=== PATIENT | female | born 1975 | race Caucasian/White ===

== ENCOUNTER 2022-02-07 18:29 | Outpatient (CLI) | payer MEDICAID ==
[2022-02-07 19:14] LABS: BASOPHILS # (AUTO) 0.1 X10'3 (0-0.2); BASOPHILS % (AUTO) 1.1 % (0-1); EOSINOPHILS # (AUTO) 0.3 X10'3 (0-0.9); EOSINOPHILS % (AUTO) 6.1 % (0-6); HEMATOCRIT 33.7 % (35.0-45.0); HEMOGLOBIN 11.2 g/dl (12.0-16.0); LYMPHOCYTES # (AUTO) 1.6 X10'3 (1.1-4.8); LYMPHOCYTES % (AUTO) 27.4 % (21-51); MEAN CORPUSCULAR HEMOGLOBIN 28.5 PG (27.0-31.0); MEAN CORPUSCULAR HGB CONC 33.2 g/dL (33.0-36.5); MEAN CORPUSCULAR VOLUME 85.7 FL (78-98); MEAN PLATELET VOLUME 7.1 FL (7.4-10.4); MONOCYTES # (AUTO) 0.8 X10'3 (0-0.9); MONOCYTES % (AUTO) 13.5 % (2-12); NEUTROPHILS % (AUTO) 51.9 % (42-75); PLATELET COUNT 273 X10'3 (140-440); RED BLOOD COUNT 3.93 X10'6 (4.20-5.60); RED CELL DISTRIBUTION WIDTH 14.1 % (11.5-14.5); WHITE BLOOD COUNT 5.7 X10'3 (4.5-11.0)
[2022-02-07 19:19] LABS: ALBUMIN 3.2 G/DL (3.4-5.0); BLOOD UREA NITROGEN 11 MG/DL (7-18); BUN/CREATININE RATIO 12.5 (6.6-38.0); C-REACTIVE PROTEIN 0.57 MG/DL (0.0-0.5); CALCIUM 8.5 MG/DL (8.5-10.1); CHLORIDE 107 MMOL/L (99-107); CREATININE 0.88 MG/DL (0.40-0.90); GLUCOSE 106 MG/DL (70-104); TOTAL CARBON DIOXIDE 21.9 MMOL/L (24-32); VANCOMYCIN,RANDOM 20.8 UG/ML; eGFR 70 ML/MIN
[2022-02-07 19:25] LABS: ANION GAP 12 (8-16); POTASSIUM 3.6 MMOL/L (3.5-5.1); SODIUM 141 MMOL/L (135-145)
== END 2022-02-07 23:59 | disposition home or self-care (01) ==
LOC: LAB SPEC 18:29
PROVIDERS: ATTEND Orthopaedic Surgery
DX: T81.40XA Infection following a procedure, unspecified, initial encounter (principal); Y83.9 Surgical procedure, unspecified as the cause of abnormal reaction of the patient, or of later complication, without mention of misadventure at the time of the procedure; Y92.89 Other specified places as the place of occurrence of the external cause
CPT/HCPCS: 36415; 80048; 80202; 85025; 86140

== ENCOUNTER 2022-08-25 11:17 | Emergency (ER) | payer MEDICAID ==
[~2022-08-25] VITALS: Ht 182.9 cm; Wt 81.8 kg
[~2022-08-25 11:17] MED LIST: LEVO750T68 PO
[2022-08-25 11:48] LABS: BASOPHILS # (AUTO) 0.1 X10'3 (0-0.2); BASOPHILS % (AUTO) 0.6 % (0-1); EOSINOPHILS # (AUTO) 0.3 X10'3 (0-0.9); EOSINOPHILS % (AUTO) 2.6 % (0-6); HEMATOCRIT 43.8 % (42.0-52.0); HEMOGLOBIN 14.8 g/dl (14.0-17.9); LYMPHOCYTES # (AUTO) 2.7 X10'3 (1.1-4.8); LYMPHOCYTES % (AUTO) 26.6 % (21-51); MEAN CORPUSCULAR HEMOGLOBIN 30.3 PG (27.0-31.0); MEAN CORPUSCULAR HGB CONC 33.7 g/dL (33.0-36.5); MEAN CORPUSCULAR VOLUME 89.9 FL (78-98); MEAN PLATELET VOLUME 6.4 FL (7.4-10.4); MONOCYTES # (AUTO) 0.7 X10'3 (0-0.9); MONOCYTES % (AUTO) 7.1 % (2-12); NEUTROPHILS # (AUTO) 6.5 X10'3 (1.8-7.7); NEUTROPHILS % (AUTO) 63.1 % (42-75); PLATELET COUNT 360 X10'3 (140-440); RED BLOOD COUNT 4.87 X10'6 (4.70-6.10); RED CELL DISTRIBUTION WIDTH 13.8 % (11.5-14.5); WHITE BLOOD COUNT 10.3 X10'3 (4.5-11.0)
[2022-08-25 12:05] LABS: ALANINE AMINOTRANSFERASE 27 U/L (12-78); ALBUMIN 3.6 G/DL (3.4-5.0); ALBUMIN/GLOBULIN RATIO 1.1 (1.1-1.5); ALKALINE PHOSPHATASE 90 IU/L (46-116); ANION GAP 7 (8-16); ASPARTATE AMINO TRANSFERASE 20 U/L (10-37); BILIRUBIN,TOTAL 0.4 MG/DL (0.1-1.0); BLOOD UREA NITROGEN 9 MG/DL (7-18); BUN/CREATININE RATIO 9.7 (5.4-32.0); CHLORIDE 100 MMOL/L (99-107); CREATININE 0.93 MG/DL (0.60-1.10); GLUCOSE 94 MG/DL (70-104); MAGNESIUM 2.3 MG/DL (1.5-2.4); SODIUM 131 MMOL/L (135-145); TOTAL CARBON DIOXIDE 24.5 MMOL/L (24-32); eGFR 88 ML/MIN
[2022-08-25] MEDS ORDERED: normal saline 1000ML IV soln IVB ONE (12:55)
[2022-08-25 14:25] LABS: CLARITY,URINE CLEAR (Clear); COLOR,URINE YELLOW (Yellow); GLUCOSE, URINE NEGATIVE (Neg); KETONES,URINE NEGATIVE (Neg); LEUKOCYTE ESTERASE ,URINE NEGATIVE (Neg); NITRITES, URINE NEGATIVE (Neg); OCCULT BLOOD,URINE NEGATIVE (Neg); PROTEIN,URINE NEGATIVE (Neg); UROBILINOGEN,URINE 0.2 E.U/dL (0.2-1.0)
[2022-08-25 14:50] LABS: UA COLLECTION TYPE CLN CATCH MIDSTREAM
[2022-08-25 14:55] LABS: URINE AMPHETAMINE SCREEN NEGATIVE (Neg); URINE BARBITUATE SCREEN NEGATIVE (Neg); URINE BENZODIAZEPINES SCREEN NEGATIVE (Neg); URINE CANNABINOID SCREEN NEGATIVE (Neg); URINE COCAINE SCREEN NEGATIVE (Neg); URINE METHADONE SCREEN NEGATIVE (Neg); URINE OPIATE SCREEN NEGATIVE (Neg); URINE PHENCYCLIDINE SCREEN NEGATIVE (Neg)
[2022-08-25 15:37] VITALS: BP 114/77
== END 2022-08-25 15:43 | disposition home or self-care (01) ==
LOC: ER 11:18
DX: R53.1 Weakness (principal); R42 Dizziness and giddiness; F15.90 Other stimulant use, unspecified, uncomplicated; Z79.2 Long term (current) use of antibiotics
CPT/HCPCS: 36415; 80053; 80305; 81003; 83735; 83880; 84484; 85025; 93005; 96360; 99284; J7030

== ENCOUNTER 2023-09-08 12:13 | Emergency (ER) | payer MEDICAID ==
[~2023-09-08] VITALS: Ht 182.9 cm; Wt 84.1 kg
[2023-09-08 12:58] VITALS: TEMP 99.7
[2023-09-08 13:54] VITALS: BP 95/65; PULSE 117; RESP 18; O2SAT 97
[2023-09-08 14:07] LABS: WHITE BLOOD COUNT 11.9 X10'3 (4.5-11.0)
[2023-09-08 14:11] LABS: HEMATOCRIT 43.5 % (42.0-52.0); HEMOGLOBIN 14.5 g/dl (14.0-17.9); MEAN CORPUSCULAR HEMOGLOBIN 30.1 PG (27.0-31.0); MEAN CORPUSCULAR HGB CONC 33.4 g/dL (33.0-36.5); MEAN CORPUSCULAR VOLUME 90.2 FL (78-98); MEAN PLATELET VOLUME 7.2 FL (7.4-10.4); PLATELET COUNT 159 X10'3 (140-440); RED BLOOD COUNT 4.82 X10'6 (4.70-6.10); RED CELL DISTRIBUTION WIDTH 13.7 % (11.5-14.5)
[2023-09-08 14:29] LABS: ALANINE AMINOTRANSFERASE 29 U/L (12-78); ALBUMIN 3.9 G/DL (3.4-5.0); ALBUMIN/GLOBULIN RATIO 1.2 (1.1-1.5); ALKALINE PHOSPHATASE 92 IU/L (46-116); ANION GAP 11 (8-16); ASPARTATE AMINO TRANSFERASE 20 U/L (10-37); BILIRUBIN,TOTAL 2.3 MG/DL (0.1-1.0); BLOOD UREA NITROGEN 18 MG/DL (7-18); BUN/CREATININE RATIO 18.9 (10.0-20.0); CALCIUM 9.1 MG/DL (8.5-10.1); CHLORIDE 101 MMOL/L (99-107); CREATININE 0.95 MG/DL (0.60-1.10); GLUCOSE 130 MG/DL (70-104); LIPASE 17 U/L (16-77); POTASSIUM 4.1 MMOL/L (3.5-5.1); SODIUM 135 MMOL/L (135-145); TOTAL CARBON DIOXIDE 22.6 MMOL/L (24-32); TOTAL PROTEIN 7.1 G/DL (6.4-8.2); eCRCL 107 ML/MIN; eGFR 85 ML/MIN
[2023-09-08 15:09] LABS: TOTAL CELLS COUNTED 100
[2023-09-08 15:10] LABS: PLATELET ESTIMATE NORMAL
== END 2023-09-08 17:43 | disposition left against medical advice (07) ==
LOC: ER 12:14
DX: R11.0 Nausea (principal); R30.9 Painful micturition, unspecified; J11.1 Influenza due to unidentified influenza virus with other respiratory manifestations; Z53.21 Procedure and treatment not carried out due to patient leaving prior to being seen by health care provider
CPT/HCPCS: 80053; 83690; 85007; 85025; 99281

== ENCOUNTER 2023-10-09 20:17 | Emergency (ER) | payer MEDICAID ==
[~2023-10-09] VITALS: Ht 182.9 cm; Wt 87.0 kg
[2023-10-09 22:34] LABS: BASOPHILS % (AUTO) 0.2 % (0-1); EOSINOPHILS # (AUTO) 0.1 X10'3 (0-0.9); EOSINOPHILS % (AUTO) 0.4 % (0-6); HEMATOCRIT 40.4 % (42.0-52.0); HEMOGLOBIN 13.3 g/dl (14.0-17.9); LYMPHOCYTES # (AUTO) 0.6 X10'3 (1.1-4.8); LYMPHOCYTES % (AUTO) 4.2 % (21-51); MEAN CORPUSCULAR HEMOGLOBIN 29.7 PG (27.0-31.0); MEAN CORPUSCULAR VOLUME 90.2 FL (78-98); MEAN PLATELET VOLUME 7.2 FL (7.4-10.4); MONOCYTES # (AUTO) 0.6 X10'3 (0-0.9); MONOCYTES % (AUTO) 3.9 % (2-12); NEUTROPHILS % (AUTO) 91.3 % (42-75); PLATELET COUNT 219 X10'3 (140-440); RED BLOOD COUNT 4.48 X10'6 (4.70-6.10); RED CELL DISTRIBUTION WIDTH 14.5 % (11.5-14.5); WHITE BLOOD COUNT 14.2 X10'3 (4.5-11.0)
[2023-10-09 22:40] LABS: ALANINE AMINOTRANSFERASE 36 U/L (12-78); ALBUMIN 3.5 G/DL (3.4-5.0); ALBUMIN/GLOBULIN RATIO 1.2 (1.1-1.5); ALKALINE PHOSPHATASE 86 IU/L (46-116); ANION GAP 10 (8-16); ASPARTATE AMINO TRANSFERASE 17 U/L (10-37); BILIRUBIN,TOTAL 0.8 MG/DL (0.1-1.0); BLOOD UREA NITROGEN 18 MG/DL (7-18); CALCIUM 8.6 MG/DL (8.5-10.1); CHLORIDE 102 MMOL/L (99-107); CREATININE 1.06 MG/DL (0.60-1.10); GLUCOSE 118 MG/DL (70-104); LIPASE 19 U/L (16-77); SODIUM 138 MMOL/L (135-145); TOTAL CARBON DIOXIDE 25.9 MMOL/L (24-32); TOTAL PROTEIN 6.5 G/DL (6.4-8.2); eCRCL 96 ML/MIN; eGFR 75 ML/MIN
[2023-10-10 00:03] LABS: BILIRUBIN,URINE NEGATIVE (Neg); CLARITY,URINE CLOUDY (Clear); COLOR,URINE YELLOW (Yellow); GLUCOSE, URINE NEGATIVE (Neg); KETONES,URINE NEGATIVE (Neg); LEUKOCYTE ESTERASE ,URINE MODERATE (Neg); NITRITES, URINE POSITIVE (Neg); OCCULT BLOOD,URINE NEGATIVE (Neg); PROTEIN,URINE NEGATIVE (Neg); UROBILINOGEN,URINE 0.2 E.U/dL (0.2-1.0)
[2023-10-10 00:56] LABS: UA COLLECTION TYPE NON-SPECIFIED
[2023-10-10 00:58] LABS: SQUAMOUS EPITHELIAL CELL,UR FEW /LPF (FEW)
[2023-10-10 00:59] LABS: RBC,URINE 0-2 /HPF (0-2); WBC,URINE 50-100 /HPF (0-4)
[2023-10-10 01:00] LABS: BACTERIA,URINE 4+ /HPF (Neg); MUCUS STRANDS FEW /LPF (Neg)
[2023-10-10] MEDS ORDERED: SULF1TAB49 PO (01:25)
[2023-10-10] MEDS: sulfamethoxazole/trimethoprim DS (800/160mg) tablet PO ONE (01:43)
[2023-10-10 01:50] VITALS: BP 132/79; PULSE 89; RESP 16; TEMP 98.9; O2SAT 100
== END 2023-10-10 01:53 | disposition home or self-care (01) ==
LOC: ER 20:17
DX: N10 Acute pyelonephritis (principal); F15.90 Other stimulant use, unspecified, uncomplicated; Z79.899 Other long term (current) drug therapy
CPT/HCPCS: 36415; 80053; 81001; 81003; 83690; 85025; 87077; 87088; 87186; 99283

== ENCOUNTER → 2024-01-29 | Outpatient (CLI) | payer MEDICAID | END | disposition home or self-care (01) | LOC: MRI 11:58 | PROVIDERS: ATTEND Specialist | DX: S43.491A Other sprain of right shoulder joint, initial encounter (principal); M19.011 Primary osteoarthritis, right shoulder; M25.511 Pain in right shoulder; M24.811 Other specific joint derangements of right shoulder, not elsewhere classified; G25.89 Other specified extrapyramidal and movement disorders; X58.XXXA Exposure to other specified factors, initial encounter; Y93.89 Activity, other specified; Y92.89 Other specified places as the place of occurrence of the external cause; Y99.8 Other external cause status; M75.51 Bursitis of right shoulder | CPT/HCPCS: 73221 ==

== ENCOUNTER 2025-02-06 09:28 | Emergency (ER) | payer MEDICAID ==
[~2025-02-06] VITALS: Ht 182.9 cm; Wt 119.0 kg
[2025-02-06 09:40] VITALS: TEMP 98.5
[2025-02-06 10:23] LABS: LEUKOCYTE ESTERASE ,URINE TRACE (Neg); NITRITES, URINE POSITIVE (Neg); OCCULT BLOOD,URINE NEGATIVE (Neg)
[2025-02-06 10:27] LABS: UA COLLECTION TYPE VOIDED
[2025-02-06 10:51] LABS: SQUAMOUS EPITHELIAL CELL,UR FEW /LPF (FEW); WBC CLUMPS,URINE FEW /HPF (NEGATIVE)
[2025-02-06 10:53] LABS: RENAL CELLS, URINE FEW /HPF
--- NOTE | 2025-02-06 11:08 | Physician Documentation ---
History of Present Illness General Chief Complaint: Testicular Pain Stated Complaint: TESTICULAR PAIN Time Seen by MD: 10:54 Primary Medical Doctor: ERIN LE History of Present Illness Initial Comments The patient is a 49-year-old male who was working on a truck two days ago. He was standing on a front tire and slipped. He landed such that his left testicle was crushed against the tire. He comes in complaining of swelling and pain of the left testis. He has had pyelonephritis in the past, on the right side. Medication Reconciliation Allergies: Coded Allergies: No Known Allergies (Unverified , 09/08/23) Scheduled Levofloxacin (Levofloxacin), 1 TAB PO DAILY Past Medical History Past Medical History: No Pertinent History Past Surgical History: noncontributory Alcohol Use: None Drug Use: methamphetamine Lives with: S/O Lives In: Home Review of Systems ROS Constitutional: Denies chills, fatigue, fever, weight gain or weight loss. HEENT: Denies hearing loss, sinus pressure or visual changes. Respiratory: Denies cough, shortness of breath or wheezing. Cardiovascular: Denies chest pain, pain while walking (claudication), edema or palpitations. Gastrointestinal: Denies abdominal pain, blood in stool, constipation, diarrhea, heartburn, loss of appetite, nausea or vomiting. Genitourinary: Left-sided testicular pain and swelling Metabolic/Endocrine: Denies cold intolerance, heat intolerance, excessive thirst (polydipsia) or excessive hunger (polyphagia). Neurological: Denies dizziness, extremity numbness, extremity weakness, headaches, seizures or tremors. Psychiatric: Denies anxiety or depression. Integumentary: Denies breast discharge, breast lump, hives, mole change(s), rash or skin lesion. Musculoskeletal: Denies back pain, joint pain, joint swelling or neck pain. Hematologic: Denies easily bleeding, easily bruises, lymphedema or issues with blood clots. Immunologic: Denies food allergies or seasonal allergies. Physical Exam Physical Exam Vital Signs: Temperature: 98.5, Source: Oral, Heart Rate: 119, Respiratory Rate: 18, BP: 119/70, Pulse Oximetry: 99, Weight: 119.000 Physical Exam Physical Exam Vitals and nursing note reviewed. Constitutional: General: Patient is awake, alert, oriented x 4 in no acute distress and well appearing. Speech is clear and lucid. Appearance: Normal appearance. Patient is not ill-appearing, toxic-appearing or diaphoretic. HENT: Head: Normocephalic and atraumatic. Mouth/Throat: Mouth: Mucous membranes are moist. Pharynx: Oropharynx is clear. Eyes: General: No scleral icterus. Extraocular Movements: Extraocular movements intact. Pupils: Pupils are equal, round, and reactive to light. Neck: Supple, no Kernig or Brudzinski sign. Cardiovascular: Rate and Rhythm: Normal rate and regular rhythm. Heart sounds: No murmur heard. Pulmonary: Effort: No respiratory distress. Breath sounds: No wheezing, rhonchi or rales. Abdominal: General: There is no distension. Palpations: There is no fluid wave, hepatomegaly or mass. Tenderness: There is no abdominal tenderness. There is no guarding. Genitourinary: Uncircumcised male, moderately severe left hemiscrotal swelling. Musculoskeletal: General: No swelling or deformity. Skin: Coloration: Skin is not jaundiced. Findings: No erythema or rash. Neurological: Mental Status: Patient is alert. Progress Results/Orders Results/Orders Orders - ELDA ESPINOZA MD Cult Urine + [address] (02/06/25 10:56) Us Testic/W/Duplex (02/06/25 ) Culture Blood (02/06/25 11:03) Completed Orders - ELDA ESPINOZA MD Ua W/Microscopic, Cult If Ind (02/06/25 10:15) Us Testic/W/Duplex (02/06/25 ) Bmp Er (02/06/25 11:03) Cbc/Diff (02/06/25 11:03) Lacticsepsis (02/06/25 11:03) Ceftriaxone 2gm/D5w 50ml Bag (Rocephin 2 (02/06/25 11:03) Medications Received in ER Medications (Trade) Dose Ordered Sig/Sly Route PRN Reason Start Time Stop Time Status Last Admin Dose Admin Ceftriaxone Sodium/Dextrose 50 ml @ 100 mls/hr ONCE STAT IV 02/06/25 11:03 02/06/25 11:32 DC 02/06/25 12:04 100 MLS/HR Vital Signs 02/06/25 02/06/25 02/06/25 09:40 11:15 12:37 Temp 98.5 Pulse 119 77 83 Resp 18 16 18 B/P (MAP) 119/70 124/69 (87) 114/70 (85) Pulse Ox 99 98 100 O2 Flow Rate 0 0 Laboratory Tests Test 02/06/25 10:15 02/06/25 11:44 Urine Specimen Description Voided Urine Color Yellow Urine Clarity Slightly cloudy Urine pH 6.0 Urine Specific [place] 1.025 Urine Protein Negative Urine Glucose (UA) Negative Urine Ketones Negative Urine Occult Blood Negative Urine Nitrite Positive H Urine Bilirubin Negative Urine Urobilinogen 0.2 Urine Leukocyte Esterase Trace H Urine RBC 0-2 Urine WBC 30-50 H Urine WBC Clumps Few Urine Squamous Epithelial Cells Few Urine Transitional Epithelial Cells Moderate Urine Renal Cells Few Urine Bacteria 4+ Urine Culture Indicated Indicated Volume Urine Centrifuged 10 ml Urine Comment White Blood Count 14.4 H Red Blood Count 4.46 L Hemoglobin 13.1 L Hematocrit 39.0 L Mean Corpuscular Volume 87.3 Mean Corpuscular Hemoglobin 29.3 Mean Corpuscular Hemoglobin Concent 33.5 Red Cell Distribution Width 14.2 Platelet Count 315 Mean Platelet Volume 6.7 L Neutrophils (%) (Auto) 76.0 H Lymphocytes (%) (Auto) 12.1 L Monocytes (%) (Auto) 10.3 Eosinophils (%) (Auto) 1.4 Basophils (%) (Auto) 0.2 Neutrophils # (Auto) 10.9 H Lymphocytes # (Auto) 1.7 Monocytes # (Auto) 1.5 H Eosinophils # (Auto) 0.2 Basophils # (Auto) 0.0 CBC Comment Sodium Level 138 Potassium Level 3.8 Chloride Level 103 Carbon Dioxide Level 27.6 Anion Gap 7 L Blood Urea Nitrogen 14 Creatinine 1.00 Estimated GFR/1.73 m2 80 BUN/Creatinine Ratio 14.0 Glucose Level 96 Lactic Acid Level 0.9 Calcium Level 9.0 Albumin 3.8 Chemistry Comments Microbiology Date/Time Source Procedure Growth Status 02/06/25 10:56 Urine Voided Urine Culture - Preliminary Culture received. Resulted Departure Disposition: HOME / SELF CARE / HOMELESS Impression: Primary Impression: Testicular/scrotal pain Additional Impression: UTI (urinary tract infection) Condition: Stable Referrals: NO PRIMARY CARE PROVIDER (PCP) Prescriptions Ibuprofen (Ibuprofen) 600 Mg Tablet 1 TAB PO Q6H PRN for pain, #30 TABLET Prov: DE PICCIOTTO,ELDA MD 02/06/25 Levofloxacin (Levofloxacin) 500 Mg Tablet 500 MG PO DAILY, #7 TAB Prov: ELDA ESPINOZA MD 02/06/25 Education Educated: Patient Educated regarding: diagnosis, treatment, prognosis, need for follow up Signature Scribe Signature: . Attestation: . ELDA ESPINOZA MD Feb 06, 2025 11:08
[2025-02-06 12:03] LABS: MEAN PLATELET VOLUME 6.7 FL (7.4-10.4); RED CELL DISTRIBUTION WIDTH 14.2 % (11.5-14.5)
[2025-02-06] MEDS: CefTRIAXone 2gm/D5W 50ml BAG 50 ML IV STA (12:04)
[2025-02-06 12:18] LABS: CREATININE 1.00 MG/DL (0.60-1.10); TOTAL CARBON DIOXIDE 27.6 MMOL/L (24-32); eCRCL 100 ML/MIN; eGFR 80 ML/MIN
[2025-02-06] MEDS ORDERED: IBUP-1985 PO (13:26)
[2025-02-06] MEDS ORDERED: LEVO-65 PO (13:26)
--- NOTE | 2025-02-07 07:51 | RADIOLOGY REPORT ---
ULTRASOUND OF SCROTUM AND CONTENTS. INDICATION: Trauma COMPARISON: None TECHNIQUE: Multiple real-time grayscale sonographic and color and duplex Doppler images of the scrotu m and its contents were obtained. FINDINGS: The right testicle measures 3.0 x 2.8 x 3.4 cm. The left testicle measures 3.1 x 3.9 x 3.4 cm. Both testicles demonstrate homogeneous echotexture without evidence of focal lesions. Small right hydrocele. Small left hydrocele. The right epididymis is unremarkable. The left epididymis is increased in size. Subsequent color and duplex Doppler interrogation of the testes demonstrated increased vascularity to the left epididymis and left testicle. Left scrotal edema and swelling. Findings are suspicious for left orchitis and left epididymitis. IMPRESSION: Findings are suggestive of left epididymitis and orchitis.
== END 2025-02-06 13:48 | disposition home or self-care (01) ==
LOC: ER 09:29
DX: N50.812 Left testicular pain (principal); N39.0 Urinary tract infection, site not specified; F15.90 Other stimulant use, unspecified, uncomplicated
CPT/HCPCS: 36415; 76870; 80048; 81001; 83605; 85025; 87040; 87077; 87088; 87186; 93976; 96365; 99285; J0696

== ENCOUNTER 2025-04-09 23:11 | Emergency (ER) | payer MEDICAID ==
[~2025-04-09 23:11] MED LIST changes: +IBUP600T52 PO; -LEVO750T68 PO
[2025-04-09] MEDS: fluorescein sod 1mg ophthalmic strip EACHEYE ONE (23:33)
[2025-04-09] MEDS: proparacaine 0.5% ophthalmic drops 15ml EACHEYE ONE (23:33)
[2025-04-10] MEDS ORDERED: GEN0.3OS LEFTEYE (00:03)
--- NOTE | 2025-04-10 00:04 | Physician Documentation ---
History of Present Illness ~ Chief Complaint: Eye Pain Stated Complaint: METAL IN EYE Time Seen by MD: 23:24 Primary Medical Doctor: ERIN CRUZ 49 year old male reports he was grinding on metal pipe and the following day he began experiencing bilateral eye pain and redness. He denies visual disturbances but reports light sensitivity. Medication Reconciliation Allergies: Coded Allergies: No Known Allergies (Unverified , 09/08/23) Scheduled PRN Ibuprofen (Ibuprofen), 1 TAB PO Q6H PRN for pain Past Medical History Past Medical History: No Pertinent History Past Surgical History: noncontributory Alcohol Use: None Drug Use: methamphetamine Lives with: S/O Lives In: Home Review of Systems All Other Systems at this time: Reviewed and Negative Physical Exam Vital Signs: Temperature: 98.1, Heart Rate: 96, Respiratory Rate: 14, BP: 138/90, Pulse Oximetry: 100 Oxygen Flow Rate: 0 Physical Exam HEENT: PERRL, moist oral mucosa, EOMI; injected conjunctivae bilaterally with noted embedded metallic foreign bodies in both cornea Pulmonary: No respiratory distress MSK: no deformity Skin: w/d/i, no rash Neuro: alert, nonfocal Psych: normal affect Visual Acuity : Eye Location: Left Vision Acuity Degree: 20/20 Correction: Uncorrected Progress Results/Orders Results/Orders Orders - ANTWON CASTANEDA MD Gentamicin Ophth Drops (Gentamicin Ophth (04/10/25 00:00) Completed Orders - ANTWON CASTANEDA MD Fluorescein 1mg Ophthal Strip (Ful-Randi O (04/09/25 23:25) Proparacaine Ophth Solution (Alcaine Oph (04/09/25 23:25) Medications Received in ER Medications (Trade) Dose Ordered Sig/Sly Route PRN Reason Start Time Stop Time Status Last Admin Dose Admin (Ful-Randi ophth strip) 1 mg ONCE ONCE EACHEYE 04/09/25 23:25 04/09/25 23:26 DC 04/09/25 23:33 1 MG (Alcaine ophth solution) 2 drop ONCE ONCE EACHEYE 04/09/25 23:25 04/09/25 23:26 DC 04/09/25 23:33 2 DROP Vital Signs 04/09/25 23:13 Temp 98.1 Pulse 96 Resp 14 B/P (MAP) 138/90 Pulse Ox 100 O2 Flow Rate 0 Medical Decision Making Findings 49 year old male with embedded metallic foreign bodies in both eyes which were removed easily under slit lamp examination. Provided ophthalmic antibiotics and return precautions. Additional Comment Ddx = corneal foreign body, corneal abrasion, allergic conjunctivitis, chemical conjunctivitis Departure Disposition: HOME / SELF CARE / HOMELESS Impression: Primary Impression: Corneal foreign body Condition: Stable Discharge Instructions: Foreign Body, Eye Referrals: NO PRIMARY CARE PROVIDER (PCP) Prescriptions Gentamicin Sulfate (Gentak) 0.3 % Drops 1 DROP LEFTEYE Q6H for 5 Days, #5 ML 0 Refills Prov: ANTWON CASTANEDA MD 04/10/25 Education Educated: Patient Educated regarding: diagnosis, treatment, prognosis, need for follow up Signature Scribe Signature: . Attestation: . ANTWON CASTANEDA MD Apr 10, 2025 00:04
[2025-04-10] MEDS: gentamicin 0.3% ophthalmic drops 5ML EACHEYE ONE (00:05)
[2025-04-10 00:11] VITALS: BP 136/89; PULSE 90; RESP 18; TEMP 98.6; O2SAT 99
== END 2025-04-10 00:12 | disposition home or self-care (01) ==
LOC: ER 23:11
DX: T15.02XA Foreign body in cornea, left eye, initial encounter (principal); T15.01XA Foreign body in cornea, right eye, initial encounter; W44.9XXA Unspecified foreign body entering into or through a natural orifice, initial encounter; Y93.89 Activity, other specified; Y92.89 Other specified places as the place of occurrence of the external cause; Y99.8 Other external cause status
CPT/HCPCS: 99284; J3490